=== PATIENT | female | born 1935 | race Caucasian/White ===

== ENCOUNTER → 2018-07-18 | Outpatient (CLI) | payer MEDICARE ==
[~2018-07-18] MED LIST: ASPIRIN 32325 MG/TAB PO; COREG 6.256.25 MG/TA PO; COREG3.125 MG PO; EXCEDRIN IB200 MG PO; EXCEDRIN1 TAB PO; FORT1000TA PO; GLUCOVANCE 2.51 TAB PO; LANTUS100 U/ML SQ; METFORMIN850 MG PO; NORCO 325 MG-51 TAB PO; NORCO 325 MG-7.1 TAB PO; VYTORIN 10 MG-11 TAB PO; XARELTO10 MG PO
== END ==
LOC: MC.RAD 06-12 08:20
DX: Z12.31 Encounter for screening mammogram for malignant neoplasm of breast (principal)

== ENCOUNTER 2019-04-24 15:06 | Emergency (ER) | payer MEDICARE ==
[2006-04-11 10:22] VITALS: BP 153/83
[~2019-04-24] VITALS: Ht 160 cm; Wt 70.5 kg
[2019-04-24 15:15] VITALS: TEMP 98.9
[2019-04-24 16:18] LABS: BASO % 0.4 % (0.0-2.0); EOS # 0.1 (0.0-0.7); EOS % 1.3 % (0-4.0); GRAN % 69.8 % (42.2-75.2); HEMATOCRIT 41.6 % (37.0-47.0); HEMOGLOBIN 13.2 g/dl (12.5-16.0); INR 0.9 (0.8-3.0); LYMPH # 1.5 (1.2-3.4); LYMPH % 20.8 % (20.0-51.0); MEAN CELL VOLUME 88 fl (80.0-100.0); MEAN CORPUSCULAR HEMOGLOBIN 28 pg (27.0-31.0); MEAN CORPUSCULAR HGB CONC 32 g/dl (33.0-37.0); MEAN PLATELET VOLUME 8.6 fl (7.4-10.4); MONO # 0.5 (0.1-0.6); MONO % 7.4 % (1.7-9.3); PLATELET COUNT 328 K/mm3 (130-400); PROTHROMBIN TIME 10.7 SECONDS (9.7-12.8); RED BLOOD COUNT 4.72 M/mm3 (4.10-5.30); REDCELL DISTRIBUTION WIDTH-CV 13.1 % (11.5-14.5)
[2019-04-24 16:26] LABS: ALBUMIN 4.3 gm/dL (3.5-5.0); BILIRUBIN,TOTAL 0.4 mg/dL (0.0-1.0); CALCIUM 10.1 mg/dL (8.4-10.2); CREATININE, serum 0.7 (0.52-1.25); POTASSIUM 3.8 mmol/L (3.4-5.0); TOTAL PROTEIN 7.6 gm/dL (6.4-8.2)
[2019-04-24 16:31] LABS: COLLECTION METHOD CLEAN CATCH
[2019-04-24 16:38] LABS: MUCOUS Present /lpf; PH 5 (5-8); SQUAMOUS EPITHELIAL 0-2 /hpf; URINE APPEARANCE Clear; URINE BACTERIA None Seen /hpf; URINE BILIRUBIN Negative (NEGATIVE); URINE BLOOD Negative (NEGATIVE); URINE COLOR Yellow; URINE GLUCOSE 3+ (NEGATIVE); URINE KETONE Trace (NEGATIVE); URINE LEUKOCYTE ESTERASE Negative (NEGATIVE); URINE NITRATE Negative (NEGATIVE); URINE PROTEIN(semi-quant) 1+ (NEGATIVE); URINE RBC 0-2 /hpf; URINE UROBILINOGEN Negative (NEGATIVE)
[2019-04-24 16:49] LABS: TROPONIN-I 0.205 ng/mL (0.000-0.035)
[2019-04-24 22:36] VITALS: BP 201/93; PULSE 68
== END 2019-04-24 19:05 | disposition short-term general hospital (02) ==
LOC: COL.ER 15:06
PROVIDERS: Emergency Medicine
DX: I21.4 Non-ST elevation (NSTEMI) myocardial infarction (principal); E11.9 Type 2 diabetes mellitus without complications; I10 Essential (primary) hypertension; R79.89 Other specified abnormal findings of blood chemistry
CPT/HCPCS: J1644; J7030

== ENCOUNTER 2019-08-03 16:11 | Outpatient (RCR) | payer MEDICARE | END 2019-08-06 | disposition home or self-care (01) | LOC: COL.CR | DX: I21.4 Non-ST elevation (NSTEMI) myocardial infarction (principal); Z48.812 Encounter for surgical aftercare following surgery on the circulatory system; Z95.5 Presence of coronary angioplasty implant and graft ==

== ENCOUNTER → 2020-06-06 | Outpatient (CLI) | payer MEDICARE | LOC: COL.RAD 09:37 | DX: Z01.812 Encounter for preprocedural laboratory examination (principal); I10 Essential (primary) hypertension; R16.0 Hepatomegaly, not elsewhere classified | CPT/HCPCS: Q9967 ==

== ENCOUNTER → 2020-08-23 | Outpatient (CLI) | payer MEDICARE ==
[2006-04-11 10:22] VITALS: BP 153/83
[~2020-08-23] VITALS: Ht 160 cm; Wt 72.5 kg
[2020-08-23] VITALS (19 sets, daily range): BP systolic 151–197; BP diastolic 70–106; PULSE 64–81
[~2020-08-23] MED LIST changes: +GLUCOPHAGE XR500 M1 PO
[2020-08-23 10:07] LABS: PROTHROMBIN TIME 10.9 SECONDS (9.7-12.8)
== END ==
LOC: COL.RAD 09:00
PROVIDERS: Family Medicine
DX: R16.0 Hepatomegaly, not elsewhere classified (principal)

== ENCOUNTER → 2020-09-13 | Outpatient (CLI) | payer MEDICARE | LOC: COL.RAD 07:57 | DX: C22.0 Liver cell carcinoma (principal); K80.20 Calculus of gallbladder without cholecystitis without obstruction; R91.1 Solitary pulmonary nodule | CPT/HCPCS: Q9967 ==

== ENCOUNTER → 2021-01-30 | Outpatient (CLI) | payer MEDICARE | LOC: COL.RAD | DX: C22.0 Liver cell carcinoma (principal); R91.1 Solitary pulmonary nodule | CPT/HCPCS: Q9967 ==

== ENCOUNTER → 2021-05-08 | Outpatient (CLI) | payer MEDICARE | LOC: COL.RAD 09:49 | DX: C22.9 Malignant neoplasm of liver, not specified as primary or secondary (principal); Z90.49 Acquired absence of other specified parts of digestive tract | CPT/HCPCS: Q9967 ==

== ENCOUNTER → 2021-05-31 | Outpatient (CLI) | payer MEDICARE ==
[2006-04-11 10:22] VITALS: BP 153/83
--- NOTE | 2021-05-30 09:28 | NUR ---
LMOM WITH CALL BACK NUMBER AND INSTRUCTIONS
[~2021-05-31] VITALS: Ht 160 cm; Wt 69.0 kg
[2021-05-31] VITALS (7 sets, daily range): BP systolic 183–215; BP diastolic 79–100; PULSE 71–79
--- NOTE | 2021-05-31 11:00 | NUR ---
PT BROUGHT INTO ROOM AND PLACED ON TABLE. MONITORING EQUIPMENT PLACED.
== END ==
LOC: COL.RAD 05-22 13:00
DX: C22.0 Liver cell carcinoma (principal); E11.9 Type 2 diabetes mellitus without complications
CPT/HCPCS: J2250; J3010

== ENCOUNTER → 2022-08-15 | Outpatient (CLI) | payer MEDICARE | LOC: COL.RAD 12:51 | DX: S12.9XXA Fracture of neck, unspecified, initial encounter (principal); X58.XXXA Exposure to other specified factors, initial encounter ==

== ENCOUNTER → 2023-04-03 | Outpatient (CLI) | payer MEDICARE | LOC: COL.RAD 07:34 | DX: C82.13 Follicular lymphoma grade II, intra-abdominal lymph nodes (principal) | CPT/HCPCS: Q9967 ==

== ENCOUNTER 2024-06-19 17:08 | Emergency (ER) | payer MEDICARE ==
[~2024-06-19] VITALS: Ht 162.6 cm; Wt 68.2 kg
[2024-06-19 17:15] VITALS: TEMP 99.4
[2024-06-19 20:30] VITALS: BP 171/92; PULSE 86
== END 2024-06-19 20:30 | disposition home or self-care (01) ==
LOC: COL.ER 17:08
DX: S01.01XA Laceration without foreign body of scalp, initial encounter (principal); W01.198A Fall on same level from slipping, tripping and stumbling with subsequent striking against other object, initial encounter; Y93.01 Activity, walking, marching and hiking

== ENCOUNTER 2024-08-17 10:07 | Day surgery (SDC) | payer MEDICARE, OTHER ==
[~2024-08-17] VITALS: Ht 160 cm; Wt 68.6 kg
[~2024-08-17 10:07] MED LIST changes: +LR 1,000 ML IV SCH; +Ondansetron 4 MG/2 ML VIAL IV PRN
[2024-08-17] MEDS ORDERED: COZAAR 50MG50 MG/TAB PO (11:03)
[2024-08-17] MEDS ORDERED: LIPITOR 40MG TA40 MG PO (11:03)
[2024-08-17] MEDS ORDERED: AMARYL 2MG T2 MG/TAB PO (11:04)
[2024-08-17] MEDS ORDERED: D3 PO (11:04)
[2024-08-17] MEDS ORDERED: CALCIUM PO (11:05)
[2024-08-17 11:19] VITALS: BP 173/85; PULSE 76; TEMP 97.9
[2024-08-17] MEDS ORDERED: Lidocaine PF 2% (20 MG/ML) 5 ML VIAL ONE (11:34)
[2024-08-17] MEDS ORDERED: PEPCID 20MG TAB20 MG PO (12:43)
[2024-08-17 12:55] VITALS: BP 164/96; PULSE 83
[2024-08-17 13:15] VITALS: BP 178/77; PULSE 75
[2024-08-17 13:45] VITALS: BP 167/83; PULSE 85
--- NOTE | 2024-08-17 14:34 | NUR ---
1255 PATIENT RETURNS TO [facility] VIA CART. PT AWAKE AND ALERT. RESPIRATIONS UNLABORED. AMBULATED TO RECLINER CHAIR WITH 2:1 SBA. PT DENIES NAUSEA OR ABDOMINAL PAIN. HOOKED UP TO MONITOR AND VS OBTAINED. CALL LIGHT AT SIDE AND SON PRESENT. 1300 PATIENT TOLERATING DIET PEPSI AND CHOCOLATE ICE CREAM WITHOUT NAUSEA OR DIFFICULTY SWALLOWING. 1310 IN ROOM SPEAKING WITH PATIENT. 1320 D/C INSTRUCTIONS REVIEWED WITH PATIENT. PT VERBALIZED UNDERSTANDING AND A COPY OF INSTRUCTIONS PROVIDED IN D/C FOLDER. 1330 PATIENT DRESSES SELF. 1345 PATIENT DISCHARGED FROM UNIT VIA W/C TO A PERSONAL VEHICLE. PT LEFT HOSPITAL IN STABLE CONDITION.
== END 2024-08-17 13:45 | disposition home or self-care (01) ==
LOC: SDCO 10:07
DX: K29.31 Chronic superficial gastritis with bleeding (principal); K25.9 Gastric ulcer, unspecified as acute or chronic, without hemorrhage or perforation; D12.0 Benign neoplasm of cecum; D12.3 Benign neoplasm of transverse colon; D12.5 Benign neoplasm of sigmoid colon; D12.8 Benign neoplasm of rectum; K57.30 Diverticulosis of large intestine without perforation or abscess without bleeding; K64.0 First degree hemorrhoids; E11.9 Type 2 diabetes mellitus without complications; Z79.84 Long term (current) use of oral hypoglycemic drugs; Z95.5 Presence of coronary angioplasty implant and graft; Z85.05 Personal history of malignant neoplasm of liver
CPT/HCPCS: J2704; J7120